=== PATIENT | female | born 1960 | race Caucasian/White ===

== ENCOUNTER → 2016-12-11 | Day surgery (SDC) | payer OTHER ==
[~2016-12-11] VITALS: Ht 162.6 cm; Wt 98.9 kg
[~2016-12-11] MED LIST: CRESTOR5 M1 PO; MOTRIN800 MG PO; PAXIL20 M1 PO; SYNTHROID88 MCG PO
--- NOTE | 2016-12-11 15:24 | Operative Report ---
Operative/Inv Procedure Report Surgery Date: 12/11/16 Name of Procedure: left ureteroscopy with laserlithotripsy, stone extraction and stent Pre-Operative Diagnosis: left renal stone Post-Operative Diagnosis: same Estimated Blood Loss: scant Surgeon/Scale Expert: RONNY SCHREIBER MD Anesthesia: laryngeal mask airway Drains: 6x24cm stent Specimens: stone fragments Complications: none Condition: stable Operative Indication: left renal colic Operative/Procedure Note Note: Operative dictation on patient Katerin Kahn. She was identified in the holding area and consented for left ureteroscopy with laser lithotripsy retropyelogram stone extraction and stent placement. Risks benefits and alternatives of the surgery were given and all questions were answered. Patient was taken to the operating room placed on the operating table in the supine position. Patient was given IV antibiotics after timeout was performed. LMA anesthesia was then given. Patient was placed in the dorsolithotomy position and prepped and draped in the standard sterile fashion. Cystoscopy was performed the bladder was globally inspected. There were no lesions or masses or abnormalities appreciated and the ureteral orifices were placed in their normal anatomic position. The left ureter was cannulated with a solo guidewire. This was followed by a second Solo wire. The ureteral access sheath 35 cm in length was then placed over the one of the wires. It was seen to be in good position. The flexible ureteroscope was then placed up into the renal pelvis. A retrograde pocket was performed to delineate the renal anatomy. The stone was the easily identified. It was circular and spiculated and white in color. It was lasered with the 400 laser fiber. Was broken into fragments. They were removed with the 0 tip basket through the access sheath. Once that were too small to grasp were left behind to allow the patient to expel them with urination. The Solo wire that was remaining was used to place a 6 x 24 cm ureteral stent with cystoscopy. Stent was seen to be in good position. Patient tolerated the procedure well.
--- NOTE | 2016-12-11 17:22 | RADIOLOGY REPORT ---
EXAMINATION: XR KIDNEYS, URETER AND BLADDER (C-ARM FLUOROSCOPY ASSISTANCE) CLINICAL INDICATION: Left-sided ureteroscopy, retrograde lithotripsy and stent insertion. COMPARISON: None TECHNIQUE: 17 spot images were obtained at the time of the procedure. FLUOROSCOPY TIME: 27 seconds. FINDINGS: Multiple spot radiographs were obtained at the time of the procedure. Full procedural detail will be dictated by Dr. Baugh. IMPRESSION: Multiple spot radiographs were obtained at the time of the procedure. Full procedural details will be dictated by Dr. Baugh.
== END ==
LOC: STS 01:56
DX: N20.0 Calculus of kidney (principal); N94.19 Other specified dyspareunia; R31.0 Gross hematuria; Z87.442 Personal history of urinary calculi; J44.9 Chronic obstructive pulmonary disease, unspecified; Z87.891 Personal history of nicotine dependence; Z85.048 Personal history of other malignant neoplasm of rectum, rectosigmoid junction, and anus
CPT/HCPCS: 74000; 82355; C2617; J0131; J0690; J2250